=== PATIENT | female | born 1950 | race Caucasian/White ===

== ENCOUNTER 2017-12-19 10:47 | Emergency (ER) | payer OTHER ==
[~2017-12-19] VITALS: Ht 152.4 cm; Wt 63.2 kg
[2017-12-19 10:53] VITALS: Ht 152.4 cm; Wt 63.2 kg
[2017-12-19] MEDS ORDERED: PRINIVIL20 MG PO (10:55)
[2017-12-19] MEDS ORDERED: FLUTICASONE PRO16 GM NASAL (12:56)
[2017-12-19] MEDS ORDERED: MEDROL DOSE PACK4 MG PO (12:56)
[2017-12-19] MEDS ORDERED: ZITHROMAX250 MG PO (12:56)
[2017-12-19 13:21] VITALS: BP 172/95
== END 2017-12-19 13:22 | disposition home or self-care (01) ==
LOC: D.ER 10:47
DX: J01.90 Acute sinusitis, unspecified (principal); R51 Headache; I10 Essential (primary) hypertension; F17.200 Nicotine dependence, unspecified, uncomplicated